=== PATIENT | female | born 1980 | race Caucasian/White ===

== ENCOUNTER 2022-02-17 20:59 | Emergency (ER) | payer BC ==
[~2022-02-17] VITALS: Ht 172.7 cm; Wt 74.8 kg
[~2022-02-17 20:59] MED LIST: PERCOCET 325 MG1 TA2 PO
[2022-02-17 21:11] VITALS: BP 134/84
[2022-02-17 22:22] LABS: BASO % 0.3 % (0.0-1.0); EOS % 0.2 % (1.0-4.0); LYMPH % 10.7 % (27.0-41.0); MEAN CELL VOLUME 87.6 fl (81.0-99.0); MEAN CORPUSCULAR HGB 29.7 pg (27.0-31.0); MEAN CORPUSCULAR HGB CONC 33.9 g/dl (33.0-37.0); MEAN PLATELET VOLUME 9.8 fl (9.6-12.3); MONO # 0.4 10*3/uL (0.1-1.0); MONO % 4.6 % (3.0-9.0); NEUT # 7.7 10*3/uL (2.3-7.9); PLATELET COUNT AUTOMATED 232 10*3/uL (130-400); RED BLOOD COUNT 4.11 10*6/uL (4.10-5.10); RED CELL DISTRI WIDTH 13.9 % (0-14.5); WHITE BLOOD COUNT 9.2 10*3/uL (4.8-10.8)
[2022-02-18 00:21] LABS: BILIRUBIN Negative (Negative); BLOOD 3+ (Negative); CLARITY Clear (Clear); COLOR Orange (Yellow); GLUCOSE Negative (Negative); KETONE Negative (Negative); LEUKO ESTERASE 1+ (Negative); NITRITE Negative (Negative); SPECIFIC GRAVITY 1.015 (1.001-1.030); UROBILINOGEN 0.2 E.U./dl (0.0-1.0)
[2022-02-18 00:42] LABS: ALKALINE PHOSPHATASE 217 U/L (46-116); BUN 10 mg/dl (9-23); CHLORIDE 108 mmol/L (98-107); POTASSIUM 3.5 mmol/L (3.4-5.1); SGPT/ALT 106 U/L (10-49); TOTAL PROTEIN 7.1 gm/dL (6.0-8.0)
[2022-02-18 00:44] LABS: EPITHELIAL CELLS 31-40; RBC TNTC rbc/hpf (0-2)
[2022-02-18 00:45] LABS: BACTERIA TRACE; WBC 16-20 wbc/hpf (0-5)
[2022-02-18] MEDS ORDERED: PROTONIX40 MG PO (00:51)
== END 2022-02-18 01:10 | disposition home or self-care (01) ==
LOC: ED 20:59
PROVIDERS: Emergency Medicine
DX: K29.70 Gastritis, unspecified, without bleeding (principal); Z91.040 Latex allergy status; Z98.890 Other specified postprocedural states

== ENCOUNTER 2022-12-05 17:55 | Emergency (ER) | payer SELFPAY ==
[~2022-12-05] VITALS: Wt 70.0 kg
[~2022-12-05 17:55] MED LIST changes: +PROTONIX40 MG PO
[2022-12-05 18:24] VITALS: BP 133/85
[2022-12-05] MEDS ORDERED: XANAX0.5 MG PO (18:25)
[2022-12-05] MEDS ORDERED: SEROQUEL25 MG PO (18:26)
[2022-12-05] MEDS ORDERED: VISTARIL50 MG PO (18:26)
[2022-12-05] MEDS ORDERED: DOXEPIN25 MG PO (18:26)
[2022-12-05] MEDS ORDERED: BUPRENORPHINE HY8 MG SL (18:27)
[2022-12-05 18:49] LABS: BASO # 0.1 10*3/uL (0.0-0.1); BASO % 0.9 % (0.0-1.0); EOS # 0.1 10*3/uL (0.0-0.4); EOS % 2.2 % (1.0-4.0); HEMATOCRIT 35.4 % (37.0-47.0); LYMPH # 2.3 10*3/uL (1.3-4.4); LYMPH % 43.4 % (27.0-41.0); MEAN CELL VOLUME 90.3 fl (81.0-99.0); MEAN CORPUSCULAR HGB 29.8 pg (27.0-31.0); MEAN CORPUSCULAR HGB CONC 33.1 g/dl (33.0-37.0); MEAN PLATELET VOLUME 9.5 fl (9.6-12.3); MONO # 0.3 10*3/uL (0.1-1.0); MONO % 5.2 % (3.0-9.0); NEUT # 2.6 10*3/uL (2.3-7.9); NEUT % 48.1 % (47.0-73.0); PLATELET COUNT AUTOMATED 202 10*3/uL (130-400); RED BLOOD COUNT 3.92 10*6/uL (4.10-5.10); RED CELL DISTRI WIDTH 12.5 % (0-14.5); WHITE BLOOD COUNT 5.4 10*3/uL (4.8-10.8)
[2022-12-05 19:02] LABS: ACT PARTIAL THROMBO TIME 23.6 SECONDS (20.0-32.1); INTERNATIONAL NORM RATIO 1.1 (2.0-3.5)
[2022-12-05 19:14] LABS: ALKALINE PHOSPHATASE 117 U/L (46-116); BUN 10 mg/dl (9-23); CHLORIDE 107 mmol/L (98-107); POTASSIUM 3.7 mmol/L (3.4-5.1); SGPT/ALT 19 U/L (5-49); TOTAL PROTEIN 6.8 gm/dL (6.0-8.0)
== END 2022-12-05 21:30 | disposition home or self-care (01) ==
LOC: ED 17:55
PROVIDERS: Nurse Practitioner Family
DX: R07.89 Other chest pain (principal); M79.602 Pain in left arm; F41.9 Anxiety disorder, unspecified; Z91.040 Latex allergy status; Z98.890 Other specified postprocedural states